=== PATIENT | female | born 1990 ===

== ENCOUNTER 2021-02-05 11:00 | Inpatient (IN) | payer OTHER ==
[~2021-02-05] VITALS: Ht 154.9 cm; Wt 3.2 kg
[2021-02-17] MEDS ORDERED: PRENATAL TABLE1 EAC1 PO (08:53)
[2021-02-17] MEDS ORDERED: FOLIC ACID20 MG (08:53)
[2021-02-17] MEDS ORDERED: TARON-C DHA CA1 EACH (16:29)
== END 2021-02-20 13:56 | disposition home or self-care (01) | DRG 788 ==
LOC: LDR 02-17 07:44 → SURG-SUITE 02-17 07:44 → O/R 02-17 07:44 → SURG-SUITE 02-17 13:54 → SURH 02-20 11:00 → SURG-SUITE 02-20 13:56
PROVIDERS: ADMIT Obstetrics & Gynecology; ATTEND Obstetrics & Gynecology
PROC: 4A1HXFZ Monitoring of Products of Conception, Cardiac Rhythm, External Approach (ICD-10-PCS; 2021-02-17)
PROC: 3E0P7VZ Introduction of Hormone into Female Reproductive, Via Natural or Artificial Opening (ICD-10-PCS; 2021-02-17)
PROC: 10D00Z1 Extraction of Products of Conception, Low, Open Approach (ICD-10-PCS; principal; 2021-02-17 12:00)
DX: O76 Abnormality in fetal heart rate and rhythm complicating labor and delivery (principal); O42.02 Full-term premature rupture of membranes, onset of labor within 24 hours of rupture; Z37.0 Single live birth; Z3A.39 39 weeks gestation of pregnancy